=== PATIENT | male | born 1940 | race Caucasian/White ===

== ENCOUNTER 2016-08-20 15:49 | Emergency (ER) | payer MEDICARE ==
--- NOTE | 2016-08-20 16:41 | RADIOLOGY REPORT ---
HISTORY: Cough, hemoptysis COMPARISON: None. FINDINGS: 2 views of the chest obtained. Heart size within normal limits. Rounded 1.4 cm nodular opacity over t he right lower lung most likely representing nipple although confirmation recommended. Mild prominenc e of reticular markings in the bilateral lungs, greater in the apices. No large effusion. No pneumoth orax. IMPRESSION: 1. Round 1.4 cm nodular density projecting over the right lower lung. This most likely represents nip ple shadow. Repeat frontal radiographs with nipple markers and arms up and down recommended. 2. Mild prominence of reticular markings bilaterally, greater in the lung apices. Findings are nonspe cific with considerations including interstitial lung disease, atypical pneumonia, and atypical edema . Final Electronic Signature: This report was electronically signed by Roby Zimmerman MD on 08/20/2016 4:38 PM. marissa /
--- NOTE | 2016-08-20 16:57 | ER PHYSICIAN DOCUMENTATION ---
Physician Documentation [facility] Name:Macho Sharif Age:75 yrs Sex:Male :1940 Arrival Date:08/20/2016 Time:15:49 Bed1 Private MD: Darren Reyes Disposition: 08/22 12:57 Chart complete. tl1 Disposition: 08/20/16 16:47 Discharged to Home/Self Care. Impression: Cough, Hemoptysis. - Condition is Good. - Discharge Instructions: BRONCHITIS, Abx Tx (Adult), COUGH, Chronic, Uncertain Cause, (Adult), HEMOPTYSIS. - Prescriptions for doxycycline hyclate 100 mg Oral capsule - take 1 capsule by ORAL route 2 times per day for 10 days; 20 capsule. - Medical Reconciliation form form. - Follow up: Private Physician; When: 7 - 10 days; Reason: Recheck today's complaints, Continuance of care. - Problem is new. - Symptoms have improved. - Notes: YOUR COUGHING UP BLOOD COULD BE RELATED TO INFECTION OR SOME KIND OF CHRONIC LUNG DISEASE. YOUR X-RAY, TO ME , SHOWS SOME DEGREE OF PULMONARY FIBROSIS. THIS NEEDS DEFINITIVE FOLLOW UP WITH A LUNG SPECIALIST (TUBER MACHINE OPERATOR) AVOID GOING TO ANY HIGHER ALTITUDE FOR THE NEXT COUPLE DAYS UNTIL YOU ARE FEELING BETTER. RETURN FOR FEVER, WORSENING COUGH OR TROUBLE BREATHING, OR IF WORSE IN ANY WAY. THE HIGH ALTITUDE ILLNESS INFORMATION IS PRIMARILY FOR INFORMATIONAL PURPOSES, BUT THERE COULD BE SOME DEGREE OF HIGH ALTITUDE ILLNESS CONTRIBUTING TO YOUR SYMPTOMS AT THIS TIME. HPI: 08/20 16:00 This 75 yrs old Male presents to ER via Private Vehicle with complaints of tl1 Cough. 16:00 The patient or guardian reports cough, that is intermittent, described as moderate, tl1 with productive sputum, pink, at times.. Onset: The symptom(s)/episode began/occurred gradually, 2 day(s) ago. Severity of symptoms: At their worst the symptoms were mild, in the emergency department the symptoms are unchanged. Modifying factors: The symptoms are alleviated by. Associated signs and symptoms: Pertinent negatives: chest pain, fever, nausea, sore throat, vomiting. The patient has not experienced similar symptoms in the past. The patient has not recently seen a physician. This came on yesterday when he was up at a higher altitude.. Historical: - Allergies: No known drug Allergies; - Home Meds: 1. metoprolol tartrate 25 mg oral tab 1 tab once daily 2. amlodipine 5 mg oral tab 1 tab once daily 3. Plavix 75 mg oral tab 1 tab once daily 4. Vitamin D Oral - PMHx: CAD; - PSHx: ANGIOPLASTY; TONSILLECTOMY; - Tetanus: < 10 years. - Ebola Screening: : Patient negative for fever greater than or equal to 101.5 degrees Fahrenheit, and additional compatible Ebola Virus Disease symptoms. Patient denies exposure to infectious person. Patient denies travel to an Ebola-affected area in the 21 days before illness onset. . - Immunization history: Pneumococcal vaccine is not up to date, Patient has never been vaccinated, Flu Vaccine >1 year. - Social history: Smoking status: Patient states former smoker of tobacco. ROS: 16:00 Respiratory: Positive for cough. tl1 16:00 All other systems are negative. Exam: 16:00 Constitutional: This is a well developed, well nourished patient who is awake, alert, tl1 and in no acute distress. Head/Face: Normocephalic, atraumatic. ENT: Nares patent. No nasal discharge, no septal abnormalities noted. Tympanic membranes are normal and external auditory canals are clear. Oropharynx with no redness, swelling, or masses, exudates, or evidence of obstruction, uvula midline. Mucous membranes moist. Neck: Trachea midline, no thyromegaly or masses palpated, and no cervical lymphadenopathy. Supple, full range of motion without nuchal rigidity, or vertebral point tenderness. No Meningismus. Chest/axilla: Normal chest wall appearance and motion. Nontender with no deformity. No lesions are appreciated. 16:00 Cardiovascular: Regular rate and rhythm with a normal S1 and S2. No gallops, murmurs, tl1 or rubs. Normal PMI, no JVD. No pulse deficits. 16:00 Respiratory: the patient does not display signs of respiratory distress, Respirations: normal, Breath sounds: are normal, no rales, rhonchi, no stridor, no wheezing. 16:00 Respiratory: 16:00 Abdomen/GI: Inspection: abdomen appears normal, Palpation: abdomen is soft and non-tender. 16:00 Musculoskeletal/extremity: Exam is negative for abrasion. 16:00 Skin: Exam negative for acute changes. 16:00 Neuro: Exam negative for acute changes, Orientation: is normal. Vital Signs: 16:09 BP 158 / 87; Pulse 81; Resp 16; Temp 100.1(TE); Pulse Ox 91% on R/A; Weight 61.69 kg; lp Height 5 ft. 9 in. (175.26 cm); 16:09 Body Mass Index 20.08 (61.69 kg, 175.26 cm) lp MDM: 16:00 Patient medically screened. tl1 17:00 Differential Diagnosis: Bronchitis Influenza Upper Respiratory Infection Asthma tl1 Exacerbation Viral Syndrome Pneumonia. Data reviewed: vital signs, nurses notes, radiologic studies, plain films, and as a result, I will discharge patient. Counseling: I had a detailed discussion with the patient and/or guardian regarding: the historical points, exam findings, and any diagnostic results supporting the discharge/admit diagnosis, radiology results, the need for outpatient follow up, to return to the emergency department if symptoms worsen or persist or if there are any questions or concerns that arise at home. Response to treatment: the patient's symptoms have mildly improved after treatment. Special discussion: Sounds like bronchitis. Cant r/o small contribution of ??HAPE. He is mildly symptomatic at this time and a trial of outpatient antibiotics may help. He should stay at this altitude for a few days and return here for any worsening.. 07 16:42 Order name: CXR [place] [id number]; Complete Time: 12:41 EDMS 08/22 12:41 Interpretation: SEE RADIOLOGIST REPORT. tl1 Dispensed Medications: No medications were administered Signatures: Angelina Gomes RN RN Darren Morfin MD MD tl1
--- NOTE | 2016-08-20 16:57 | ER NURSING DOCUMENTATION ---
Nurse's Notes [facility] Name:Macho Sharif Age:75 yrs Sex:Male :1940 Arrival Date:08/20/2016 Time:15:49 Bed1 Private MD: Diagnosis:Cough;Hemoptysis Presentation: 08/20 15:53 Presenting complaint: Patient states: Cough with pink tinged sputum. Transition of lp care: Home. 15:53 Acuity: CARLOS 4 lp 15:53 Method Of Arrival: Private Vehicle lp Triage Assessment: 16:06 General: Appears in no apparent distress, Behavior is appropriate for age. Pain: Denies lp pain. Respiratory: Breath sounds are clear bilaterally. Reports cough that is productive, persistent blood tinged sputum. GI: No deficits noted. : No deficits noted. Derm: No deficits noted. Musculoskeletal: No deficits noted. Historical: - Allergies: No known drug Allergies; - Home Meds: 1. metoprolol tartrate 25 mg oral tab 1 tab once daily 2. amlodipine 5 mg oral tab 1 tab once daily 3. Plavix 75 mg oral tab 1 tab once daily 4. Vitamin D Oral - PMHx: CAD; - PSHx: ANGIOPLASTY; TONSILLECTOMY; - Tetanus: < 10 years. - Ebola Screening: : Patient negative for fever greater than or equal to 101.5 degrees Fahrenheit, and additional compatible Ebola Virus Disease symptoms. Patient denies exposure to infectious person. Patient denies travel to an Ebola-affected area in the 21 days before illness onset. . - Immunization history: Pneumococcal vaccine is not up to date, Patient has never been vaccinated, Flu Vaccine >1 year. - Social history: Smoking status: Patient states former smoker of tobacco. Screenin:11 Infectious Disease Risk None. Abuse screen: Denies threats or abuse. Denies injuries lp from another. Nutritional screening: No deficits noted. Assessment: 16:10 Cardiovascular: Capillary refill < 3 seconds Heart tones S1 S2 Pulses are all present. lp Respiratory: Airway is patent Trachea midline Respiratory effort is even, unlabored, Respiratory pattern is regular, Breath sounds are clear Reports cough that is productive, Onset: The symptoms/episode began/occurred 2 weeks ago. Vital Signs: 16:09 BP 158 / 87; Pulse 81; Resp 16; Temp 100.1(TE); Pulse Ox 91% on R/A; Weight 61.69 kg; lp Height 5 ft. 9 in. (175.26 cm); 16:09 Body Mass Index 20.08 (61.69 kg, 175.26 cm) lp ED Course: 15:51 Patient arrived in ED. jt 15:52 Lay Villatoro is Primary Nurse. 15:53 Triage completed. lp 16:00 Darren Izquierdo MD is Attending Physician. tl1 16:[address] Izquierdo notified. lp 16:28 Valuables Remains with patient. lp Administered Medications: No medications were administered Outcome: 16:47 Discharge ordered by . tl1 16:56 Discharged to home ambulatory. lp 16:56 Condition: good 16:56 Instructed on discharge instructions, follow up and referral plans. medication usage. 16:56 Patient left the ED. lp Signatures: Angelina Gomes, RN RN meera Almanza, Darren Kramer MD MD tl1 Hanna Lomax Sarah
== END 2016-08-20 16:57 | disposition home or self-care (01) ==
LOC: ER 15:49
DX: R04.2 Hemoptysis (principal); J40 Bronchitis, not specified as acute or chronic; R91.8 Other nonspecific abnormal finding of lung field; I25.10 Atherosclerotic heart disease of native coronary artery without angina pectoris; Z79.02 Long term (current) use of antithrombotics/antiplatelets; Z95.5 Presence of coronary angioplasty implant and graft; Z79.899 Other long term (current) drug therapy
CPT/HCPCS: 71020; 99281